=== PATIENT | male | born 1995 | race Caucasian/White ===

== ENCOUNTER 2017-07-27 13:29 | Emergency (ER) | payer OTHER ==
[~2017-07-27] VITALS: Ht 185.4 cm; Wt 72.1 kg
[2017-07-27 13:44] VITALS: Ht 185.4 cm; Wt 72.1 kg
[2017-07-27 14:41] VITALS: BP 133/75
== END 2017-07-27 14:44 | disposition home or self-care (01) ==
LOC: ED 13:29
DX: K64.8 Other hemorrhoids (principal); F12.90 Cannabis use, unspecified, uncomplicated
CPT/HCPCS: 99406